=== PATIENT | female | born 1975 ===

== ENCOUNTER 2019-05-23 08:08 | Outpatient (REF) | payer MEDICAID, SELFPAY ==
[2019-05-23 19:47] LABS: COMMENT (LAB VIEW ONLY) 128.18 mg/dL; Microalb ug/mg Crea 5.9 ug/mg Cr
[2019-05-23 19:57] LABS: Calculated LDL 68 mg/dL; Cholesterol 113 mg/dL (50-200); HDL Cholesterol 25 mg/dL (40-60); Triglyceride 104 mg/dL (30-150)
== END 2019-05-23 08:28 ==
LOC: NCHCN 08:08
PROVIDERS: PCP Nurse Practitioner Family; Visit Provider Nurse Practitioner Family
DX: E11.9 Type 2 diabetes mellitus without complications (principal)
CPT/HCPCS: 80061; 82043; 82570

== ENCOUNTER 2022-01-18 18:21 | Outpatient (REF) | payer MEDICAID, SELFPAY ==
[2022-01-20 11:11] LABS: COVID-19 RT-PCR UVMMC Result Negative (Negative)
== END 2022-01-18 18:22 | disposition home or self-care (01) ==
LOC: NCHCN 18:21
PROVIDERS: PCP Nurse Practitioner Family; Visit Provider Nurse Practitioner Family
DX: Z20.822 Contact with and (suspected) exposure to COVID-19 (principal); R05.8 Other specified cough
CPT/HCPCS: U0003

== ENCOUNTER 2022-02-28 15:34 | Outpatient (REF) | payer MEDICAID, SELFPAY ==
[2022-02-28 20:11] LABS: Abs Immature Grans 0.02 10^3/uL (0.0-0.06); Absolute Basophil Count 0.04 10^3/uL (0.0-0.2); Absolute Eosinophil Count 0.16 10^3/uL (0.0-0.7); Absolute Lymphocyte Count 2.93 10^3/uL (1.2-3.4); Absolute Monocyte Count 0.32 10^3/uL (0.1-0.8); Basophils % 0.6; Eosinophils % 2.3; HCT 49.1 % (36.0-46.0); Immature Grans % 0.3; MCH 26.8 pg (27.0-33.0); MCHC 32.6 % (32.0-36.0); MCV 82 fL (80-95); MPV 11.1 fL (8.0-11.0); Monocytes % 4.6; Neutrophils % 50.2; Platelet Count 305 10^3/uL (130-400); RBC 5.96 10^6/uL (3.93-5.22); RDW 14.4 % (11.7-14.6); RDW-SD 43.2 fL; WBC 6.97 10^3/uL (4.4-10.8)
[2022-02-28 20:25] LABS: ALT 23 U/L (14-59); AST 6 U/L (15-37); Albumin 3.4 g/dL (3.4-5.0); Alkaline Phosphatase 157 U/L (46-116); Anion Gap 8.3 mmol/L (3-11); BUN 10 mg/dL (7-18); Bilirubin, Total 0.4 mg/dL (0.2-1.0); CO2 28.7 mmol/L (21.0-32.0); CREATININE 0.9 mg/dL (0.55-1.02); Calcium 8.8 mg/dL (8.5-10.1); Chloride 97 mmol/L (98-107); Glucose 382 mg/dL (74-106); Potassium 4.6 mmol/L (3.5-5.1); Sodium 134 mmol/L (136-145)
[2022-02-28 20:30] LABS: Hemoglobin A1C 12.3 % (<5.7)
== END 2022-02-28 15:35 | disposition home or self-care (01) ==
LOC: NCHCN 15:34
PROVIDERS: PCP Nurse Practitioner Family; Visit Provider Nurse Practitioner Family
DX: E11.9 Type 2 diabetes mellitus without complications (principal); L08.89 Other specified local infections of the skin and subcutaneous tissue
CPT/HCPCS: 80053; 87077; 83036; 85025; 87070; 87186; 87205

== ENCOUNTER 2022-03-21 13:17 | Outpatient (REF) | payer MEDICAID, SELFPAY ==
[2022-03-21 19:01] LABS: Abs Immature Grans 0.01 10^3/uL (0.0-0.06); Absolute Basophil Count 0.03 10^3/uL (0.0-0.2); Absolute Eosinophil Count 0.12 10^3/uL (0.0-0.7); Absolute Lymphocyte Count 2.99 10^3/uL (1.2-3.4); Absolute Monocyte Count 0.39 10^3/uL (0.1-0.8); Absolute Neutrophil Count 2.53 10^3/uL (1.2-6.7); Basophils % 0.5; HCT 46.7 % (36.0-46.0); HGB 15.3 g/dL (11.2-15.7); Immature Grans % 0.2; Lymphocytes % 49.3; MCHC 32.8 % (32.0-36.0); MCV 83 fL (80-95); MPV 10.2 fL (8.0-11.0); Monocytes % 6.4; Neutrophils % 41.6; Platelet Count 281 10^3/uL (130-400); RBC 5.66 10^6/uL (3.93-5.22); RDW 13.5 % (11.7-14.6); RDW-SD 40.4 fL; WBC 6.07 10^3/uL (4.4-10.8)
== END 2022-03-21 13:18 | disposition home or self-care (01) ==
LOC: NCHCN 13:17
PROVIDERS: PCP Nurse Practitioner Family; Visit Provider Nurse Practitioner Family
DX: D75.1 Secondary polycythemia (principal)
CPT/HCPCS: 85025

== ENCOUNTER 2024-07-09 10:10 | Outpatient (REF) | payer MEDICAID, SELFPAY ==
[2024-07-09 19:53] LABS: ALT 15 U/L (14-59); AST 28 U/L (15-37); Albumin 3.2 g/dL (3.4-5.0); Alkaline Phosphatase 134 U/L (46-116); BUN 6 mg/dL (7-18); Bilirubin, Total 0.42 mg/dL (0.2-1.0); CREATININE 0.9 mg/dL (0.55-1.02); Calcium 9.5 mg/dL (8.5-10.1); Calculated LDL 106 mg/dL (<100); Chloride 104 mmol/L (98-107); Cholesterol 185 mg/dL (<200); Glucose 195 mg/dL (74-106); HDL Cholesterol 32 mg/dL (40-60); Potassium 4.4 mmol/L (3.5-5.1); Sodium 139 mmol/L (136-145); Total Protein 8.5 g/dL (6.4-8.2); Triglyceride 238 mg/dL (<150)
== END 2024-07-09 10:11 | disposition home or self-care (01) ==
LOC: NCHCN 10:10
PROVIDERS: PCP Nurse Practitioner Family; Visit Provider Nurse Practitioner Family
DX: E11.9 Type 2 diabetes mellitus without complications (principal); E78.5 Hyperlipidemia, unspecified
CPT/HCPCS: 80053; 80061